=== PATIENT | male | born 1960 | race Hispanic/Latino ===

== ENCOUNTER 2016-09-21 19:10 | Inpatient (IN) | payer SELFPAY ==
[~2016-09-21] VITALS: Ht 175.3 cm; Wt 99.8 kg
[2016-09-21 19:51] LABS: HEMATOCRIT 38.2 % (39.0-50.0); HEMOGLOBIN 13.2 g/dl (14.0-18.0); IMMATURE GRANULOCYTES 0.5 % (0.0-1.0); MEAN CELL VOLUME 93.9 fL CALC (80.0-100.0); MEAN CORPUSCULAR HGB 32.4 pG CALC (26.0-32.0); MEAN CORPUSCULAR HGB CONC 34.6 g/L CALC (32.0-36.0); NEUT# 3.93 thou/uL (1.82-7.42); RED BLOOD COUNT 4.07 mill/uL (4.70-6.10); RED CELL DISTRI WIDTH 14.6 % (11.5-15.5)
[2016-09-21 19:58] LABS: ALBUMIN 4.2 g/dL (3.2-5.0); ALKALINE PHOSPHATASE 112 u/l (38-126); ANION GAP 20 (6-22 (CALC)); BILIRUBIN, TOTAL 1.9 mg/dL (0.0-1.4); BUN 6 mg/dL (9-20); BUN/CREATININE RATIO 8 (12-20 (CALC)); CARBON DIOXIDE 22 mmol/l (22-30); CHLORIDE 97 mmol/l (95-108); CREATININE 0.7 mg/dL (0.7-1.3); GFR > 60 ML/MIN (>=60 (CALC)); GFR FOR AFR.AMER. > 60 ML/MIN (>=60 (CALC)); GLUCOSE 121 mg/dL (75-110); POTASSIUM 3.8 mmol/l (3.5-5.1); SGOT/AST 127 u/l (17-59); SGPT/ALT 87 u/l (21-72); SODIUM 136 mmol/l (137-146); TOTAL PROTEIN 7.7 g/dL (6.3-8.2)
[2016-09-21 23:30] LABS: ETHYL ALCOHOL 77 mg/dl (0-30)
[2016-09-22 02:18] VITALS: BP 155/74
[2016-09-22 04:44] LABS: HEMOGLOBIN 12.7 g/dl (14.0-18.0); IMMATURE GRANULOCYTES 0.5 % (0.0-1.0); MEAN CELL VOLUME 93.7 fL CALC (80.0-100.0); MEAN CORPUSCULAR HGB 32.2 pG CALC (26.0-32.0); MEAN CORPUSCULAR HGB CONC 34.3 g/L CALC (32.0-36.0); NEUT# 3.54 thou/uL (1.82-7.42); RED BLOOD COUNT 3.95 mill/uL (4.70-6.10); RED CELL DISTRI WIDTH 14.6 % (11.5-15.5)
[2016-09-22 04:56] LABS: MAGNESIUM 1.9 mg/dL (1.6-2.3)
[2016-09-22 04:59] LABS: ALBUMIN 3.9 g/dL (3.2-5.0); ALKALINE PHOSPHATASE 96 u/l (38-126); AMYLASE 81 u/l (30-110); ANION GAP 17 (6-22 (CALC)); BILIRUBIN, TOTAL 2.2 mg/dL (0.0-1.4); BUN 8 mg/dL (9-20); BUN/CREATININE RATIO 13 (12-20 (CALC)); CARBON DIOXIDE 25 mmol/l (22-30); CHLORIDE 98 mmol/l (95-108); CREATININE 0.7 mg/dL (0.7-1.3); GFR > 60 ML/MIN (>=60 (CALC)); GFR FOR AFR.AMER. > 60 ML/MIN (>=60 (CALC)); GLUCOSE 96 mg/dL (75-110); POTASSIUM 4.1 mmol/l (3.5-5.1); SGOT/AST 105 u/l (17-59); SGPT/ALT 76 u/l (21-72); SODIUM 135 mmol/l (137-146); TOTAL PROTEIN 6.9 g/dL (6.3-8.2)
[2016-09-22 08:57] VITALS: BP 160/83
[2016-09-22 10:38] VITALS: BP 145/75
[2016-09-22 14:48] VITALS: BP 168/89
== END 2016-09-22 15:55 | disposition home or self-care (01) | DRG 312 ==
LOC: ENPENDDIS → ED 19:10 → MS2 23:13
PROVIDERS: Emergency Medicine; ADMIT Internal Medicine; ATTEND Internal Medicine
DX: R55 Syncope and collapse (principal); G45.9 Transient cerebral ischemic attack, unspecified; K70.10 Alcoholic hepatitis without ascites; S92.322A Displaced fracture of second metatarsal bone, left foot, initial encounter for closed fracture; F10.129 Alcohol abuse with intoxication, unspecified; Y90.3 Blood alcohol level of 60-79 mg/100 ml; W18.30XA Fall on same level, unspecified, initial encounter; Y92.230 Patient room in hospital as the place of occurrence of the external cause

== ENCOUNTER 2018-12-17 12:25 | Emergency (ER) | payer SELFPAY ==
[~2018-12-17] VITALS: Ht 175.3 cm; Wt 101.4 kg
[2018-12-17 13:17] LABS: HEMATOCRIT 32.2 % (39.0-50.0); HEMOGLOBIN 10.9 g/dl (14.0-18.0); IMMATURE GRANULOCYTES 0.4 % (0.0-5.0); MEAN CELL VOLUME 94.7 fL CALC (80.0-100.0); MEAN CORPUSCULAR HGB 32.1 pG CALC (26.0-32.0); MEAN CORPUSCULAR HGB CONC 33.9 g/L CALC (32.0-36.0); NEUT# 3.72 thou/uL (1.82-7.42); RED BLOOD COUNT 3.4 mill/uL (4.70-6.10)
[2018-12-17 13:47] LABS: ALKALINE PHOSPHATASE 138 u/l (38-126); ANION GAP 13 (6-22 (CALC)); BUN 12 mg/dL (9-20); BUN/CREATININE RATIO 16 (12-20 (CALC)); CARBON DIOXIDE 27 mmol/l (22-30); CHLORIDE 96 mmol/l (95-108); CREATININE 0.7 mg/dL (0.7-1.3); GFR > 60 ML/MIN (>=60 (CALC)); GFR FOR AFR.AMER. > 60 ML/MIN (>=60 (CALC)); LIPASE 86 u/l (23-300); POTASSIUM 4.1 mmol/l (3.5-5.1); SGOT/AST 69 u/l (17-59); SODIUM 132 mmol/l (137-146); TOTAL PROTEIN 6.4 g/dL (6.3-8.2)
[2018-12-17 14:03] LABS: ALBUMIN 2.4 g/dL (3.2-5.0); BILIRUBIN, TOTAL 3.5 mg/dL (0.0-1.4)
[2018-12-17 14:09] LABS: INTERNATIONAL NORMALIZED RATIO 1.4 RATIO (0.7-1.3)
[2018-12-17 16:19] VITALS: BP 108/60
[2018-12-17 16:47] LABS: URINE BILIRUBIN - DIPSTICK NEGATIVE (NEGATIVE); URINE BLOOD DIPSTICK NEGATIVE (NEGATIVE); URINE COLOR YELLOW; URINE GLUCOSE - DIPSTICK NEGATIVE (NEGATIVE); URINE KETONE NEGATIVE (NEGATIVE); URINE LEUK ESTERASE NEGATIVE (NEGATIVE); URINE NITRITE - DIPSTICK NEGATIVE (Negative); URINE PROTEIN - DIPSTICK NEGATIVE (NEG-TRACE); URINE SPECIFIC GRAVITY <=1.005
== END 2018-12-17 17:37 | disposition short-term general hospital (02) | DRG 434 ==
LOC: ED 12:25
PROVIDERS: Family Medicine
DX: K70.31 Alcoholic cirrhosis of liver with ascites (principal); E80.6 Other disorders of bilirubin metabolism
CPT/HCPCS: Q9967

== ENCOUNTER 2019-02-26 09:08 | Emergency (ER) | payer SELFPAY ==
[~2019-02-26] VITALS: Ht 175.3 cm; Wt 90.9 kg
[2019-02-26 10:36] LABS: HEMATOCRIT 32.9 % (39.0-50.0); HEMOGLOBIN 10.9 g/dl (14.0-18.0); IMMATURE GRANULOCYTES 0.1 % (0.0-5.0); MEAN CELL VOLUME 92.9 fL CALC (80.0-100.0); MEAN CORPUSCULAR HGB 30.8 pG CALC (26.0-32.0); MEAN CORPUSCULAR HGB CONC 33.1 g/L CALC (32.0-36.0); NEUT# 3.33 thou/uL (1.82-7.42); RED BLOOD COUNT 3.54 mill/uL (4.70-6.10); RED CELL DISTRI WIDTH 15.2 % (11.5-15.5)
[2019-02-26 10:59] LABS: ALBUMIN 2.6 g/dL (3.2-5.0); ALKALINE PHOSPHATASE 108 u/l (38-126); AMYLASE 58 u/l (30-110); ANION GAP 10 (6-22 (CALC)); BILIRUBIN, TOTAL 2.1 mg/dL (0.0-1.4); BUN 7 mg/dL (9-20); BUN/CREATININE RATIO 10 (12-20 (CALC)); CARBON DIOXIDE 23 mmol/l (22-30); CHLORIDE 107 mmol/l (95-108); CREATININE 0.7 mg/dL (0.7-1.3); GFR > 60 ML/MIN (>=60 (CALC)); GFR FOR AFR.AMER. > 60 ML/MIN (>=60 (CALC)); LIPASE 98 u/l (23-300); POTASSIUM 4.1 mmol/l (3.5-5.1); SGOT/AST 33 u/l (17-59); SODIUM 137 mmol/l (137-146)
[2019-02-26 11:19] LABS: ACT PARTIAL THROMBO TIME 28.5 SECONDS (20.0-32.5); INTERNATIONAL NORMALIZED RATIO 1.3 RATIO (0.7-1.3)
[2019-02-26 11:29] LABS: URINE BILIRUBIN - DIPSTICK NEGATIVE (NEGATIVE); URINE BLOOD DIPSTICK NEGATIVE (NEGATIVE); URINE COLOR YELLOW; URINE GLUCOSE - DIPSTICK NEGATIVE (NEGATIVE); URINE KETONE TRACE mg/dL (NEGATIVE); URINE LEUK ESTERASE NEGATIVE (NEGATIVE); URINE NITRITE - DIPSTICK NEGATIVE (Negative); URINE PROTEIN - DIPSTICK NEGATIVE (NEG-TRACE); URINE SPECIFIC GRAVITY 1.015
[2019-02-26] MEDS ORDERED: ALDACTONE50 MG PO (13:45)
[2019-02-26 13:58] VITALS: BP 144/81
== END 2019-02-26 14:05 | disposition home or self-care (01) | DRG 433 ==
LOC: ED 09:08
PROC: 0W9G3ZZ Drainage of Peritoneal Cavity, Percutaneous Approach (ICD-10-PCS; principal; 2019-02-26)
DX: K74.60 Unspecified cirrhosis of liver (principal); R18.8 Other ascites
CPT/HCPCS: Q9967

== ENCOUNTER 2021-03-24 07:44 | Day surgery (SDC) | payer SELFPAY ==
[~2021-03-24] VITALS: Ht 175.3 cm; Wt 88.9 kg
[~2021-03-24 07:44] MED LIST: ADVIL PM1 CAP PO; ADVIL200 MG PO; ALDACTONE50 MG PO; MAXZIDE-2537.5 MG/TA PO; MIRALAX17 GM PO
[2021-03-24 12:00] LABS: CREATININE 0.8 mg/dL (0.7-1.3)
[2021-03-24 13:15] VITALS: BP 135/75
== END 2021-03-24 13:30 | disposition home or self-care (01) | DRG 376 ==
LOC: ENDO 07:44 → ORM 07:44
PROVIDERS: ATTEND Surgery
PROC: 0DBN8ZX Excision of Sigmoid Colon, Via Natural or Artificial Opening Endoscopic, Diagnostic (ICD-10-PCS; principal; 2021-03-24)
PROC: 3E0H8KZ Introduction of Other Diagnostic Substance into Lower GI, Via Natural or Artificial Opening Endoscopic (ICD-10-PCS; 2021-03-24)
DX: C18.7 Malignant neoplasm of sigmoid colon (principal); Z80.0 Family history of malignant neoplasm of digestive organs
CPT/HCPCS: Q9967

== ENCOUNTER 2021-04-29 07:07 | Inpatient (IN) | payer SELFPAY ==
[~2021-04-29] VITALS: Ht 175.3 cm; Wt 90.7 kg
[2021-04-30] VITALS (8 sets, daily range): BP systolic 121–150; BP diastolic 58–67
[2021-04-30 13:34] LABS: HEMOGLOBIN 8.5 g/dl (14.0-18.0)
[2021-05-01] VITALS: BP 145/68
[2021-05-01 05:30] LABS: HEMOGLOBIN 8.3 g/dl (14.0-18.0); IMMATURE GRANULOCYTES 0.2 % (0.0-5.0); MEAN CORPUSCULAR HGB 22.7 pG CALC (26.0-32.0); MEAN CORPUSCULAR HGB CONC 30.7 g/dL CAL (32.0-36.0); NEUT# 9.4 thou/uL (1.82-7.42); RED BLOOD COUNT 3.66 mill/uL (4.70-6.10); RED CELL DISTRI WIDTH 16.1 % (11.5-15.5)
[2021-05-01 05:41] LABS: MEAN CELL VOLUME 73.8 fL CALC (80.0-100.0)
[2021-05-01 05:53] LABS: BUN 9 mg/dL (8-23); BUN/CREATININE RATIO 11 (12-20 (CALC)); CHLORIDE 101 mmol/l (95-108); CREATININE 0.9 mg/dL (0.7-1.3); GFR > 60 ML/MIN (>=60 (CALC)); GFR FOR AFR.AMER. > 60 ML/MIN (>=60 (CALC)); POTASSIUM 3.5 mmol/l (3.5-5.1); SODIUM 135 mmol/l (137-146)
[2021-05-01 05:57] LABS: ANION GAP 8 (6-22 (CALC)); CARBON DIOXIDE 30 mmol/l (22-30)
[2021-05-01 09:11] VITALS: BP 148/68
[2021-05-01 10:50] VITALS: BP 115/56
[2021-05-01 15:41] VITALS: BP 125/58
[2021-05-01 19:10] VITALS: BP 133/66
[2021-05-02 03:50] VITALS: BP 130/59
[2021-05-02 05:33] LABS: HEMATOCRIT 23.2 % (39.0-50.0); HEMOGLOBIN 7.4 g/dl (14.0-18.0); MEAN CORPUSCULAR HGB 23.3 pG CALC (26.0-32.0); MEAN CORPUSCULAR HGB CONC 31.9 g/dL CAL (32.0-36.0); RED BLOOD COUNT 3.18 mill/uL (4.70-6.10); RED CELL DISTRI WIDTH 16.2 % (11.5-15.5)
[2021-05-02 05:49] LABS: ANION GAP 8 (6-22 (CALC)); BUN 7 mg/dL (8-23); BUN/CREATININE RATIO 8 (12-20 (CALC)); CARBON DIOXIDE 28 mmol/l (22-30); CHLORIDE 100 mmol/l (95-108); CREATININE 0.8 mg/dL (0.7-1.3); GFR > 60 ML/MIN (>=60 (CALC)); GFR FOR AFR.AMER. > 60 ML/MIN (>=60 (CALC)); POTASSIUM 3.3 mmol/l (3.5-5.1); SODIUM 132 mmol/l (137-146)
[2021-05-02 08:00] VITALS: BP 128/59
[2021-05-02 14:55] VITALS: BP 155/62
[2021-05-02 18:41] VITALS: BP 148/70
[2021-05-03 03:52] VITALS: BP 131/73
[2021-05-03 05:16] LABS: HEMATOCRIT 24.9 % (39.0-50.0); HEMOGLOBIN 7.9 g/dl (14.0-18.0); MEAN CORPUSCULAR HGB 23.2 pG CALC (26.0-32.0); MEAN CORPUSCULAR HGB CONC 31.7 g/dL CAL (32.0-36.0); RED BLOOD COUNT 3.41 mill/uL (4.70-6.10)
[2021-05-03 05:52] LABS: ANION GAP 8 (6-22 (CALC)); BUN 5 mg/dL (8-23); BUN/CREATININE RATIO 7 (12-20 (CALC)); CARBON DIOXIDE 28 mmol/l (22-30); CHLORIDE 99 mmol/l (95-108); CREATININE 0.7 mg/dL (0.7-1.3); GFR > 60 ML/MIN (>=60 (CALC)); GFR FOR AFR.AMER. > 60 ML/MIN (>=60 (CALC)); MAGNESIUM 1.9 mg/dL (1.6-2.3); POTASSIUM 3.3 mmol/l (3.5-5.1); SODIUM 131 mmol/l (137-146)
[2021-05-03 08:00] VITALS: BP 150/65
[2021-05-03 15:20] VITALS: BP 144/69
[2021-05-03 19:00] VITALS: BP 147/75
[2021-05-04 04:10] VITALS: BP 148/65
[2021-05-04 08:00] VITALS: BP 119/62
[2021-05-04 15:43] VITALS: BP 115/62
[2021-05-04 20:06] VITALS: BP 144/74
[2021-05-05 04:00] VITALS: BP 141/62
[2021-05-05 06:36] LABS: HEMATOCRIT 25.4 % (39.0-50.0); HEMOGLOBIN 8.1 g/dl (14.0-18.0); MEAN CELL VOLUME 71.8 fL CALC (80.0-100.0); MEAN CORPUSCULAR HGB 22.9 pG CALC (26.0-32.0); MEAN CORPUSCULAR HGB CONC 31.9 g/dL CAL (32.0-36.0); RED BLOOD COUNT 3.54 mill/uL (4.70-6.10); RED CELL DISTRI WIDTH 16.1 % (11.5-15.5)
[2021-05-05 06:52] LABS: ANION GAP 12 (6-22 (CALC)); BUN 8 mg/dL (8-23); BUN/CREATININE RATIO 11 (12-20 (CALC)); CARBON DIOXIDE 25 mmol/l (22-30); CHLORIDE 100 mmol/l (95-108); CREATININE 0.7 mg/dL (0.7-1.3); GFR > 60 ML/MIN (>=60 (CALC)); GFR FOR AFR.AMER. > 60 ML/MIN (>=60 (CALC)); POTASSIUM 3.5 mmol/l (3.5-5.1); SODIUM 133 mmol/l (137-146)
[2021-05-05] MEDS ORDERED: PERCOCET1 TA4 PO (11:13)
[2021-05-05] MEDS ORDERED: ZOFRAN4 MG/TAB PO (11:13)
== END 2021-05-05 13:15 | disposition home or self-care (01) | DRG 331 ==
LOC: MS2 04-30 07:20
PROVIDERS: Nurse Practitioner; ADMIT Surgery; ATTEND Surgery
PROC: 0DBN0ZZ Excision of Sigmoid Colon, Open Approach (ICD-10-PCS; principal; 2021-04-30)
PROC: 0DSL0ZZ Reposition Transverse Colon, Open Approach (ICD-10-PCS; 2021-04-30)
PROC: 0DJD4ZZ Inspection of Lower Intestinal Tract, Percutaneous Endoscopic Approach (ICD-10-PCS; 2021-04-30)
DX: C18.7 Malignant neoplasm of sigmoid colon (principal); I10 Essential (primary) hypertension; Z80.0 Family history of malignant neoplasm of digestive organs
CPT/HCPCS: J0131

== ENCOUNTER 2022-05-27 09:03 | Day surgery (SDC) | payer MEDICAID ==
[~2022-05-27] VITALS: Ht 175.3 cm; Wt 90.7 kg
[~2022-05-27 09:03] MED LIST changes: +LISINOPRIL10 MG PO; +PERCOCET1 TA4 PO; +ZOFRAN4 MG/TAB PO
[2022-05-27] MEDS ORDERED: VIT B-COMPLX100 MG IJ (09:16)
[2022-05-27] MEDS ORDERED: VIT C/ACEROL500 M1 PO (09:16)
[2022-05-27 11:07] VITALS: BP 110/78
== END 2022-05-27 11:30 | disposition home or self-care (01) ==
LOC: ENDO 09:03 → ORM 09:45 → ENDO 09:45
PROVIDERS: ATTEND Surgery
DX: Z12.11 Encounter for screening for malignant neoplasm of colon (principal); D12.2 Benign neoplasm of ascending colon; K57.30 Diverticulosis of large intestine without perforation or abscess without bleeding; K63.5 Polyp of colon; K50.10 Crohn's disease of large intestine without complications; K64.8 Other hemorrhoids; I10 Essential (primary) hypertension; Z85.038 Personal history of other malignant neoplasm of large intestine; Z80.0 Family history of malignant neoplasm of digestive organs; Z90.49 Acquired absence of other specified parts of digestive tract

== ENCOUNTER → 2024-04-23 | Day surgery (SDC) | payer MEDICARE ==
[~2024-04-23] VITALS: Ht 175.3 cm; Wt 102.1 kg
[~2024-04-23] MED LIST changes: +ATORVASTATIN CA20 MG PO; +COZAAR50 MG PO; +FAMOTIDINE 10MG/ML 2ML SDV IV ONE; +GLYCOPYRROLATE 0.2 MG/ML IV ONE; +LACTATED RINGER'S 1,000 ML IV ONE; +LIDOCAINE HCL 2% 2ML SDV IV ONE; +PAROXETINE10 MG PO; +PROPOFOL 200 MG/20 ML VIAL IV ONE; +VIT B-COMPLX100 MG IJ; +VIT C/ACEROL500 M1 PO
[2024-04-23 10:59] VITALS: BP 122/73
== END ==
LOC: ENDO 06:46 → ORM 13:15
PROVIDERS: ATTEND Surgery
PROC: 0DBM8ZX Excision of Descending Colon, Via Natural or Artificial Opening Endoscopic, Diagnostic (ICD-10-PCS; principal; 2024-04-23)
PROC: 0DBL8ZX Excision of Transverse Colon, Via Natural or Artificial Opening Endoscopic, Diagnostic (ICD-10-PCS; 2024-04-23)
PROC: 3E0H8GC Introduction of Other Therapeutic Substance into Lower GI, Via Natural or Artificial Opening Endoscopic (ICD-10-PCS; 2024-04-23)
DX: Z12.11 Encounter for screening for malignant neoplasm of colon (principal); D12.4 Benign neoplasm of descending colon; D12.3 Benign neoplasm of transverse colon; K57.30 Diverticulosis of large intestine without perforation or abscess without bleeding; K64.8 Other hemorrhoids; I10 Essential (primary) hypertension; Z85.038 Personal history of other malignant neoplasm of large intestine